=== PATIENT | male | born 1995 | race Caucasian/White ===

== ENCOUNTER 2016-12-16 13:58 | Emergency (ER) | payer BC ==
[2016-12-16] MEDS ORDERED: ONDANSETRON HCL 4 MG/2 ML VIAL ONE (14:18)
[2016-12-16] MEDS ORDERED: ONDANSETRON ODT 4 MG TAB.RAPDIS ONE (14:24)
[2016-12-16] MEDS ORDERED: LOPERAMIDE HCL 2 MG CAPSULE PO ONE (14:44)
--- NOTE | 2016-12-16 15:01 | ER NURSING DOCUMENTATION ---
Nurse's Notes [facility] Name:Toñito Potts Age:21 yrs Sex:Male :1995 Arrival Date:12/16/2016 Time:13:58 Bed4 Private MD: Diagnosis:Diarrhea Presentation: 12/16 14:06 Presenting complaint: Patient states: states he has had episodes of vomiting since this bw2 morning. pt states he had 3 beers lastnight. pt denies pain at this time. Transition of care: patient was not received from another setting of care. 14:06 Acuity: LINDA 3 bw2 14:06 Method Of Arrival: EMS bw2 Triage Assessment: 14:08 General: Appears in no apparent distress, Behavior is appropriate for age. Pain: Denies bw2 pain. GI: Reports diarrhea, vomiting, since this morning. Historical: - Allergies: No known drug Allergies; - Tetanus: < 10 years. - Ebola Screening: : Patient negative for fever greater than or equal to 101.5 degrees Fahrenheit, and additional compatible Ebola Virus Disease symptoms. Patient denies exposure to infectious person. Patient denies travel to an Ebola-affected area in the 21 days before illness onset. No symptoms or risks identified at this time. . - Immunization history: Flu Vaccine None. - Social history: Smoking status: Patient states was never smoker of tobacco. Screenin:11 Infectious Disease Risk None. Abuse screen: Denies threats or abuse. Nutritional bw2 screening: No deficits noted. Assessment: 14:11 See Triage Assessment done by same RN. GI: Last BM was December 16, 2016. at 09:00. bw2 Vital Signs: 14:08 BP 134 / 62; Pulse 90; Resp 18; Temp 97.8; Pulse Ox 96% on R/A; Weight 77.11 kg; Height bw2 5 ft. 11 in. (180.34 cm); Pain 0/10; 14:59 BP 134 / 62; Pulse 79; Resp 18; Pulse Ox 99% on R/A; bw2 14:08 Body Mass Index 23.71 (77.11 kg, 180.34 cm) bw2 ED Course: 13:59 Patient arrived in ED. ama 14:03 Yovani Abarca MD is Attending Physician. tl1 14:06 Linnea Palacios is Primary Nurse. bw2 14:07 Triage completed. bw2 14:11 Valuables Remains with patient Patient has correct armband on for positive bw2 identification. Side rails up X2. 14:12 Inserted peripheral IV: 18 gauge in left antecubital area and blood collected. bw2 Administered Medications: 14:12 Drug: Zofran 4 mg; Route: IVP; Infused Over: 2 mins; Site: left antecubital; bw2 14:20 Follow up: Response: No adverse reaction; Nausea is decreased bw2 14:31 Drug: Imodium A-D 2 mg; Route: PO; bw2 14:32 Follow up: Response: No adverse reaction bw2 14:33 CANCELLED (Duplicate Order): IMMODIUM 2 mg PO once; IMMODIUM 2 MG PO bw2 Outcome: 14:28 Discharge ordered by . tl1 14:59 Discharged to home ambulatory. bw2 14:59 Condition: good 14:59 Discharge Assessment: Patient awake, alert and oriented x 3. No cognitive and/or functional deficits noted. Patient verbalized understanding of disposition instructions. 14:59 Discharge instructions given to patient, Instructed on discharge instructions, follow up and referral plans. Demonstrated understanding of instructions, medications, Prescriptions given X 1. 15:00 Patient left the ED. bw2 0715 08:29 Discharge F/U Call: Unable to reach: no answer st Signatures: Zena Zamora RN RN st Averdick, Andrew, Yovani Singletary MD MD tl1 Supriya Palaciosh bw2
--- NOTE | 2016-12-18 15:01 | ER PHYSICIAN DOCUMENTATION ---
Physician Documentation [facility] Name:Toñito Potts Age:21 yrs Sex:Male :1995 Arrival Date:12/16/2016 Time:13:58 Bed4 Private MD: Yovani Drummond Disposition: 12/16 15:10 Chart complete. tl1 Disposition: 12/16/16 14:28 Discharged to Home/Self Care. Impression: Diarrhea. - Condition is Good. - Discharge Instructions: DIARRHEA, Unk Cause (Adult) Report Pendg. - Prescriptions for Zofran 4 mg Oral Tablet - take 1-2 tablet by ORAL route every 4-6 hours As needed; 10 tablet. - Medical Reconciliation form form. - Follow up: Private Physician; When: As needed; Reason: Recheck today's complaints. - Problem is new. - Symptoms have improved. HPI: 14:00 This 21 yrs old Male presents to ER via EMS with complaints of tl1 Nausea/Vomiting. 14:00 The patient presents to the emergency department with nausea, with vomiting, 4 times tl1 since last night, with diarrhea, 6 times since last night, without any complaints of abdominal pain. Onset: The symptom(s)/episode began/occurred suddenly, this morning. Possible causes: bad food exposure, chicken. The symptoms are aggravated by nothing. The symptoms are alleviated by nothing. Severity of symptoms: At their worst the symptoms were moderate in the emergency department the symptoms are unchanged. The patient has not experienced similar symptoms in the past. . Historical: - Allergies: No known drug Allergies; - Tetanus: < 10 years. - Ebola Screening: : Patient negative for fever greater than or equal to 101.5 degrees Fahrenheit, and additional compatible Ebola Virus Disease symptoms. Patient denies exposure to infectious person. Patient denies travel to an Ebola-affected area in the 21 days before illness onset. No symptoms or risks identified at this time. . - Immunization history: Flu Vaccine None. - Social history: Smoking status: Patient states was never smoker of tobacco. ROS: 13:30 Constitutional: Positive for fatigue, malaise, Negative for fever. tl1 13:30 Abdomen/GI: Positive for nausea, vomiting, diarrhea, Negative for abdominal pain, hematemesis, black/tarry stool, rectal bleeding. 13:30 All other systems are negative. Exam: 13:30 Head/Face: Normocephalic, atraumatic. tl1 13:30 Eyes: Pupils equal round and reactive to light, extra-ocular motions intact. Lids and tl1 lashes normal. Conjunctiva and sclera are non-icteric and not injected. Cornea within normal limits. Periorbital areas with no swelling, redness, or edema. 13:30 Constitutional: The patient appears alert, awake, well developed, well groomed, well nourished, uncomfortable. 13:30 ENT: Mouth: Oral mucosa: pink and intact, dry, Posterior pharynx: is normal. 13:30 Neck: ROM/movement: is normal, is supple, Lymph nodes: no appreciated lymphadenopathy. 13:30 Cardiovascular: Rate: normal, Rhythm: regular, Heart sounds: normal, Edema: is not appreciated. 13:30 Respiratory: the patient does not display signs of respiratory distress, Respirations: normal, Breath sounds: are normal. 13:30 Abdomen/GI: Inspection: abdomen appears normal, Bowel sounds: normal, Palpation: abdomen is soft and non-tender. 13:30 Skin: Exam negative for acute changes, rash. Vital Signs: 14:08 BP 134 / 62; Pulse 90; Resp 18; Temp 97.8; Pulse Ox 96% on R/A; Weight 77.11 kg; Height bw2 5 ft. 11 in. (180.34 cm); Pain 0/10; 14:59 BP 134 / 62; Pulse 79; Resp 18; Pulse Ox 99% on R/A; bw2 14:08 Body Mass Index 23.71 (77.11 kg, 180.34 cm) bw2 MDM: 14:04 Patient medically screened. tl1 14:20 Differential diagnosis: gastritis, viral gastroenteritis, gastroenteritis, FOOD tl1 POISONING. Data reviewed: vital signs, nurses notes, and as a result, I will discharge patient. Counseling: I had a detailed discussion with the patient and/or guardian regarding: the historical points, exam findings, and any diagnostic results supporting the discharge/admit diagnosis, the need for outpatient follow up, to return to the emergency department if symptoms worsen or persist or if there are any questions or concerns that arise at home. Medication response: The patient's symptoms have improved, ZOFRAN. Response to treatment: the patient's symptoms have markedly improved after treatment, and as a result, I will discharge patient. ED course: 2 Liters NS and Zofran. He felt much better at the time of d/c and was eager to get back to the hotel to get ready for the wedding.. Dispensed Medications: 14:12 Drug: Zofran 4 mg; Route: IVP; Infused Over: 2 mins; Site: left antecubital; bw2 14:20 Follow up: Response: No adverse reaction; Nausea is decreased bw2 14:31 Drug: Imodium A-D 2 mg; Route: PO; bw2 14:32 Follow up: Response: No adverse reaction bw2 14:33 CANCELLED (Duplicate Order): IMMODIUM 2 mg PO once; IMMODIUM 2 MG PO bw2 Signatures: Yovani Abarca MD MD tl1 Linnea Palacios bw2
== END 2016-12-16 15:01 | disposition home or self-care (01) ==
LOC: ER 13:58
DX: R19.7 Diarrhea, unspecified (principal); R11.2 Nausea with vomiting, unspecified; E86.0 Dehydration; R53.83 Other fatigue; R53.81 Other malaise; Z74.3 Need for continuous supervision
CPT/HCPCS: 96374; 99284; A0425; A0429; J2405

== ENCOUNTER 2016-12-16 17:23 | Emergency (ER) | payer BC ==
[2016-12-16] MEDS ORDERED: ONDANSETRON ODT 4 MG TAB.RAPDIS ONE (17:46)
[2016-12-16 18:16] LABS: BASOPHILS 0.4 % (0.0-2.0); EOSINOPHILS 0.3 % (0.0-6.0); HEMATOCRIT 43.6 % (42.0-54.0); HEMOGLOBIN 15.1 g/dL (14.0-18.0); LYMPHOCYTES 3.6 % (20.0-40.0); LYMPHOCYTES# 0.4 X 10^3uL (0.8-3.8); MEAN CELL VOLUME 93.8 fL (80.0-100.0); MEAN CORPUS. HGB CONCENTRATION 34.6 g/dL (32.0-36.0); MEAN CORPUSCULAR HEMOGLOBIN 32.5 pg (29.0-35.0); MEAN PLATELET VOLUME 8.2 fL (7.4-10.4); MONOCYTES 6.7 % (2.0-10.0); MONOCYTES# 0.7 X 10^3uL (0.2-1.0); PLATELET COUNT 155 X 10^3uL (130-440); RED BLOOD COUNT 4.65 X 10^6uL (4.20-6.10); RED CELL DISTRIBUTION WIDTH 11.6 % (11.5-14.5); WHITE BLOOD COUNT 10.1 X 10^3uL (3.9-10.7)
[2016-12-16 18:19] LABS: BLOOD UREA NITROGEN 13 mg/dL (9-20); CALCIUM 8.2 mg/dL (8.4-10.2); CHLORIDE 107 mmol/L (98-107); EST GLOMERULAR FILTRATION RATE > 60 mL/min; GLUCOSE 90 mg/dL (70-100); POTASSIUM 4.3 mmol/L (3.5-5.1); SODIUM 140 mmol/L (137-145)
--- NOTE | 2016-12-16 20:39 | ER PHYSICIAN DOCUMENTATION ---
Physician Documentation [facility] Name:Toñito Potts Age:21 yrs Sex:Male :1995 Arrival Date:12/16/2016 Time:17:23 Bed1 Private MD: Aramis Oneill Disposition: 12/16/16 20:24 Discharged to Home/Self Care. Impression: Vomiting - Dehydration. - Condition is Good. - Discharge Instructions: VOMITING (4y-Adult). - Prescriptions for Zofran 4 mg Oral Tablet - take 1-2 tablet by ORAL route every 4-6 hours As needed; 10 tablet. Phenergan 12.5 mg Oral tablet - take 1 tablet by ORAL route 4 times per day; 10 tablet. - Medical Reconciliation form form. - Follow up: Private Physician; When: As needed; Reason: Continuance of care. - Problem is new. - Symptoms have improved. HPI: 12/16 17:30 This 21 yrs old Male presents to ER via Private Vehicle with complaints of tl1 Nausea/Vomiting. 17:30 Onset: The symptom(s)/episode began/occurred suddenly, just prior to arrival. Possible tl1 causes: bad food exposure. The symptoms are aggravated by nothing. The symptoms are alleviated by nothing. Associated signs and symptoms: Pertinent positives: nausea, vomiting, Pertinent negatives: GI bleeding, hematuria. Severity of symptoms: At their worst the symptoms were moderate. Historical: - Allergies: No known drug Allergies; - Home Meds: 1. None - PMHx: Diarrhea (December 16, 2016); None; - PSHx: None; - Ebola Screening: : Patient negative for fever greater than or equal to 101.5 degrees Fahrenheit, and additional compatible Ebola Virus Disease symptoms. Patient denies exposure to infectious person. Patient denies travel to an Ebola-affected area in the 21 days before illness onset. No symptoms or risks identified at this time. . - Immunization history: Flu Vaccine < 1 year. - Social history: Smoking status: Patient states was never smoker of tobacco. Patient/guardian denies using alcohol, street drugs, IV drugs, marijuana. ROS: 20:00 Constitutional: Positive for fatigue, malaise. jm 20:00 Abdomen/GI: Positive for nausea, vomiting. Exam: 20:00 Cardiovascular: Rate: tachycardic, Rhythm: regular. jm 20:00 Abdomen/GI: Bowel sounds: normal, Palpation: abdomen is soft and non-tender. Vital Signs: 17:30 BP 130 / 79 (auto/); sc1 17:32 Pulse Ox 96% ; sc1 17:32 Pulse 98; Resp 20; Temp 98.9(O); sc1 MDM: 17:38 Patient medically screened. tl1 20:00 Differential diagnosis: Nonspecific abd pain, viral gastroenteritis, gastroenteritis, jm altitude sickness. Data reviewed: vital signs, nurses notes, old medical records, lab test result(s), and as a result, I will discharge patient. Counseling: I had a detailed discussion with the patient and/or guardian regarding: the historical points, exam findings, and any diagnostic results supporting the discharge/admit diagnosis, lab results, the need for outpatient follow up, with the patient's primary care provider. Medication response: The patient's symptoms have improved, 12/16 18:21 Order name: BASIC METABOLIC PANEL; Complete Time: 20:34 EDMS 12/16 18:26 Order name: CBC AUTO DIF, MDIF/RMOR IF IND; Complete Time: 20:34 EDMS Dispensed Medications: 18:12 Drug: NS 0.9% 2000 ml; Route: IV; Rate: bolus; Site: right hand; Delivery: [place] sc1 Tubing; 19:40 Follow up: IV Status: Completed infusion; IV Intake: 2000ml sc1 19:40 Drug: NS 0.9% 1000 ml; Route: IV; Rate: 100 ml/hr; Site: right hand; Delivery: [place] sc1 Tubing; 20:24 Follow up: IV Status: Completed infusion; IV Intake: 1000ml sc1 20:33 Drug: Zofran 1 tablet; Route: PO; sc1 20:39 Follow up: Response: Pharmacy closed - take home med pack ga1 Point of Care Testing: Urine Dip: 19:41 pH: 5.5; ; Specific [place]: 1.025; Ketones: Large; Glucose: Negative; Protein: sc1 Negative; Leukocytes: Negative; Nitrite: Negative ; Blood: Hemolyzed Trace; Bilirubin: Small (+) ; Urobilinogen: Normal Signatures: Shira Case, RUDI RN ga1 Aramis Florian MD MD Yovani Abarca MD MD [facility]
--- NOTE | 2016-12-16 20:39 | ER NURSING DOCUMENTATION ---
Nurse's Notes [facility] Name:Toñito Potts Age:21 yrs Sex:Male :1995 Arrival Date:12/16/2016 Time:17:23 Bed1 Private MD: Diagnosis:Vomiting - Dehydration Presentation: 12/16 17:31 Presenting complaint: Patient states: nausea, vomiting and diarrhea was here earlier sc1 today for same complaints. Transition of care: patient was not received from another setting of care. Notified ED Physician of patient's arrival and CC Dr. Abarca notified. 17:31 Acuity: LINDA 3 sc1 17:31 Method Of Arrival: Private Vehicle sc1 Triage Assessment: 17:39 General: Appears cachectic, well developed, well nourished, well groomed, Behavior is sc1 cooperative, pleasant. Pain: Denies pain. GI: Reports anorexia, diarrhea, nausea, vomiting. Historical: - Allergies: No known drug Allergies; - Home Meds: 1. None - PMHx: Diarrhea (December 16, 2016); None; - PSHx: None; - Ebola Screening: : Patient negative for fever greater than or equal to 101.5 degrees Fahrenheit, and additional compatible Ebola Virus Disease symptoms. Patient denies exposure to infectious person. Patient denies travel to an Ebola-affected area in the 21 days before illness onset. No symptoms or risks identified at this time. . - Immunization history: Flu Vaccine < 1 year. - Social history: Smoking status: Patient states was never smoker of tobacco. Patient/guardian denies using alcohol, street drugs, IV drugs, marijuana. Screenin:41 Infectious Disease Risk None. Abuse screen: Denies threats or abuse. Nutritional sc1 screening: No deficits noted. Vital Signs: 17:30 BP 130 / 79 (auto/); sc1 17:32 Pulse Ox 96% ; sc1 17:32 Pulse 98; Resp 20; Temp 98.9(O); sc1 ED Course: 17:30 Patient arrived in ED. ama 17:32 Triage completed. sc1 17:37 Yovani Abarca MD is Attending Physician. tl1 17:40 Notified ED Physician of patient's arrival and chief complaint. Dr. Abarca notified. Arm sc1 band placed on Bed in low position Call Light in Reach Gowned HOB Elevated Side rails up x2. 17:43 Case, Shira, RN is Primary Nurse. [facility] [place] Attending Physician role handed off by Yovani Abarca MD jm 18:55 Aramis Florian MD is Attending Physician. greg Administered Medications: 18:12 Drug: NS 0.9% 2000 ml; Route: IV; Rate: bolus; Site: right hand; Delivery: [place] sc1 Tubing; 19:40 Follow up: IV Status: Completed infusion; IV Intake: 2000ml dc1 19:40 Drug: NS 0.9% 1000 ml; Route: IV; Rate: 100 ml/hr; Site: right hand; Delivery: [place] sc1 Tubing; 20:24 Follow up: IV Status: Completed infusion; IV Intake: 1000ml dc1 20:33 Drug: Zofran 1 tablet; Route: PO; [facility] [place] Follow up: Response: Pharmacy closed - [place] [facility] [place] of [place] Testing: Urine Dip: 19:41 pH: 5.5; ; Specific [place]: 1.025; Ketones: Large; Glucose: Negative; Protein: sc1 Negative; Leukocytes: Negative; Nitrite: Negative ; Blood: Hemolyzed Trace; Bilirubin: Small (+) ; Urobilinogen: Normal Intake: 19:40 IV: 2000ml; Total: 2000ml. sc1 20:24 IV: 1000ml; Total: 3000[place]. [facility] [place]come: 20:24 Discharge ordered by . 20:38 [place]charged to [place]ulatory. [facility] [place]:38 Condition: improved 20:38 Discharge instructions given to patient, Instructed on discharge instructions, follow up and referral plans. medication usage, Demonstrated understanding of instructions, medications, Prescriptions given X 1. 20:38 Patient left the [place]. [facility] [place] 12/17 08:29 Discharge F/U Call: Unable to reach: no answer st Signatures: Zena Zamora RN RN st Campbell, Sandy, RN RN [facility] [place] Aramis Florian MD MD jm Averdick, Andrew, Benedicto Reg Yovani Campos MD MD tl1
[2016-12-16] MEDS ORDERED: ONDANSETRON ODT PREPAC 4 MG TAB.RAPDIS PO ONE (20:41)
== END 2016-12-16 20:39 | disposition home or self-care (01) ==
LOC: ER 17:23
DX: E86.0 Dehydration (principal); R11.2 Nausea with vomiting, unspecified; R53.83 Other fatigue; R53.81 Other malaise; R00.0 Tachycardia, unspecified; Z99.89 Dependence on other enabling machines and devices; Z74.3 Need for continuous supervision
CPT/HCPCS: 36415; 80048; 85025; 96360; 96361; 99283; A0425; A0427; J2550